=== PATIENT | male | born 1945 | race Caucasian/White ===

== ENCOUNTER 2017-06-04 07:09 | Day surgery (SDC) | payer MEDICARE, MEDICAID ==
[~2017-06-04] VITALS: Ht 170.2 cm; Wt 61.7 kg
[~2017-06-04 07:09] MED LIST: BALANCED SALT IRRIG SOLN COMB1 500ML OP ONE
[2017-06-04] MEDS ORDERED: TROPICAMIDE 1% OPHTH DROPS 15ML RIGHTEYE ONE (10:00)
[2017-06-04] MEDS ORDERED: CYCLOPENTOLATE HCL 1% OPHTH DROPS 2ML RIGHTEYE ONE (10:00)
[2017-06-04] MEDS ORDERED: PHENYLEPHRINE HCL 10% OPHTH DROPS 5ML RIGHTEYE ONE (10:00)
[2017-06-04] MEDS ORDERED: ACET-2178 PO (10:42)
[2017-06-04] MEDS ORDERED: LACTATED RINGERS 1,000 ML IV SCH (10:50)
[2017-06-04] MEDS ORDERED: NEO/POLYMYX B SULF/DEXAMETH OPHTH OINT 3.5GM ONE (11:09)
[2017-06-04] MEDS ORDERED: PREDNISOLONE ACETATE 1% OPHTH DROPS 1ML ONE (11:09)
[2017-06-04] MEDS ORDERED: CIPROFLOXACIN 0.3% OPHTH SOLN 2.5ML ONE (11:09)
[2017-06-04] MEDS ORDERED: BUPIVACAINE HCL/PF 0.75% (7.5MG/ML) 10ML ONE (11:09)
[2017-06-04] MEDS ORDERED: LIDOCAINE HCL/PF 2% 20 MG/ML 10ML VIAL ONE (11:09)
[2017-06-04] MEDS ORDERED: BALANCED SALT IRRIG SOLN 15ML ONE (11:09)
[2017-06-04] MEDS ORDERED: LIDOCAINE HCL 2%/EPINEPHRINE 1:100,000 20 ML VIAL INFIL ONE (11:09)
[2017-06-04] MEDS ORDERED: HYALURONATE SODIUM 14 MG/ML 0.85ML SYRINGE IO ONE (12:47)
== END 2017-06-04 16:50 | disposition home or self-care (01) ==
LOC: OR 07:09
PROVIDERS: ATTEND Ophthalmology
DX: H25.89 Other age-related cataract (principal); K21.9 Gastro-esophageal reflux disease without esophagitis; M19.90 Unspecified osteoarthritis, unspecified site; J44.9 Chronic obstructive pulmonary disease, unspecified; Z86.2 Personal history of diseases of the blood and blood-forming organs and certain disorders involving the immune mechanism
CPT/HCPCS: 66984; J3490; J7120; V2632